=== PATIENT | female | born 2000 | race Caucasian/White ===

== ENCOUNTER 2020-08-13 22:31 | Emergency (ER) | payer OTHER, SELFPAY ==
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
[2020-08-13 22:44] VITALS: BP 100/59; PULSE 87; RESP 18; TEMP 36.7; O2SAT 98; BMI 27.6
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
--- NOTE | 2020-08-14 01:14 | PC.NURSE ---
PT HAD CT SCAN DONE DEACON LESLIE WILL TAKE OVER CARE REPORT GIVEN.
== END 2020-08-14 01:48 | disposition home or self-care (01) ==
PROVIDERS: Emergency Provider Internal Medicine
DX: S06.0X1A Concussion with loss of consciousness of 30 minutes or less, initial encounter (principal); S29.012A Strain of muscle and tendon of back wall of thorax, initial encounter; V89.2XXA Person injured in unspecified motor-vehicle accident, traffic, initial encounter; Y93.9 Activity, unspecified; Y92.410 Unspecified street and highway as the place of occurrence of the external cause; Y99.9 Unspecified external cause status
CPT/HCPCS: 70450; 72125; 99284

== ENCOUNTER 2020-12-25 17:00 | Outpatient (RCR) | payer OTHER, MEDICAID, SELFPAY | END 2021-01-21 15:02 | disposition home or self-care (01) | LOC: HO.PT 17:00 | PROVIDERS: PCP Nurse Practitioner Primary Care; Visit Provider Nurse Practitioner Primary Care | DX: M25.511 Pain in right shoulder (principal) | CPT/HCPCS: 97110; 97140; 97150; 97161 ==